=== PATIENT | male | born 1990 | race Caucasian/White ===

== ENCOUNTER 2017-06-07 12:10 | Emergency (ER) | payer MEDICAID, SELFPAY ==
[2017-06-07 12:39] VITALS: BP 156/75; PULSE 82; RESP 20; TEMP 37.2; O2SAT 100; BMI 26.6
[2017-06-07 12:53] LABS: UTC Influenza A Antigen Negative (Negative); UTC Influenza B Antigen Negative (Negative)
[2017-06-07 12:54] LABS: UTC Strep Screen (Rapid) Negative (Negative)
--- NOTE | 2017-06-07 13:27 | HMH.EDUTC ---
[facility] [place] Disposition Clinical Impression: Viral upper respiratory illness Disposition: Home, Self-Care Condition on Discharge: Good Instructions: DI for Viral Upper Respiratory Infection -- Adult Additional Instructions: * No sign of bacterial infection. Likely viral. Virus can take 7-14 days to run their course. Could be the flu with a false negative test as we discussed so treat yourself as far as exposure and follow up as if that is the case. * Monitor Temp. Tylenol every 4 hours as needed no more then 5 times a day or 4000mg in 24 hours and/or ibuprofen every 6 hours as needed no more then 3200mg in 24 hours (as long as your primary care doctor has told you that it is ok to take both) for fever/aches/pain. ER if fever no less than 101 despite tylenol and ibuprofen * Encourage fluids, water, gatorade, powerade, pedialyte if infant/toddler/child * warm salt water gargles * warm fluids * sore throat lozenges * sleep elevated * humidifier/vaporizer * * Your throat swab was sent for culture. Those results are typically sent to your primary care. Be sure to follow up in 2-3 days if no improvement so they can review those results and treat if necessary. If you don't have primary care, I recommend you get one but in the mean time, you will have to return to a walk in clinic. Referrals: Carola Lujan MD [Primary Care Provider] - (IMMEDIATELY for new or worsening symptoms OR no noticeable improvement over the next 48-72 hours. 911 for difficulty breathing or swallowing.) Forms: Work/School Release Time of Disposition: 13:41 Medical Decision Making Vital Signs: 06/07/17 12:39 Temperature 98.9 F Temperature Source Temporal Artery Scan Pulse Rate [Brachial] 82 Respiratory Rate 20 Blood Pressure [Right Arm] 156/75 Blood Pressure Mean [Right Arm] 102 Blood Pressure Source [Right Arm] Automatic Cuff Blood Pressure Position [Right Arm] Sitting 02 Sat by Pulse Oximetry 100 Oxygen Delivery Method Room Air - Lab Data Lab results reviewed: Yes: I reviewed the patient's lab results. Lab Results 06/07/17 12:39: Influenza Type A Ag Negative, Influenza Type B Ag Negative, Strep Scn Rapid Clinic Negative Orders (Tests/Meds): ORDERS Category Date Time Status Strep Screen Confirmation Stat Micro 06/07/17 12:39 Received - Keith Inquiry Pt receiving controlled substance: No [facility] [place] HPI - General Stated complaint: sore throat,cough,fever Time Seen by Provider: 06/07/17 13:27 Mode of Arrival: Ambulatory Source of Information: Patient Limitations: No Limitations Description of Symptoms (Recalled from Triage Doc. by RN): SORE THROAT, COUGH AND FEVER SINCE LAST NIGHT HEENT Symptoms (Recalled from RN notes): Yes Resp Symptoms (Recalled from RN notes): Yes Skin Symptoms (Recalled from RN notes): No MS Symptoms (Recalled from RN notes): No Functional Status (Recalled from RN notes): NA - History of Present Illness Provider Complaint: c/o sore throat, cough, fever. Started w/ cough 2-3 days ago. Fever he thinks of 102 last night. No known sick contacts. Took nyquil initially 2-3 days ago but hasn't taken or tried anything since including tylenol or motrin. Wants to rule out flu and strep. - Related Data Home Medications Medication Instructions Recorded Confirmed No Known Home Medications [No 06/07/17 06/07/17 Known Home Medications] Allergies Allergy/AdvReac Type Severity Reaction Status Date / Time No Known Allergies Allergy Verified 06/07/17 12:44 - Worker's Comp Is this a Worker's Comp case?: No [facility] History I have reviewed the patient's past medical history: Yes (drug abuse) Other Surgeries: Yes: Other (hernia) - *Social History Smoking Status: Current every day smoker Tobacco Type: cigarettes Alcohol Intake: never - Psychiatric History Expresses thoughts of harming self/others: None Suicide Plan Description: No Plan ROS Obtained: Yes Systems reviewed as appropriate & no
--- NOTE | 2017-06-07 13:34 | ED_ITS ---
[facility] [place] Disposition Clinical Impression: Viral upper respiratory illness Disposition: Home, Self-Care Condition on Discharge: Good Instructions: DI for Viral Upper Respiratory Infection -- Adult Additional Instructions: * No sign of bacterial infection. Likely viral. Virus can take 7-14 days to run their course. Could be the flu with a false negative test as we discussed so treat yourself as far as exposure and follow up as if that is the case. * Monitor Temp. Tylenol every 4 hours as needed no more then 5 times a day or 4000mg in 24 hours and/or ibuprofen every 6 hours as needed no more then 3200mg in 24 hours (as long as your primary care doctor has told you that it is ok to take both) for fever/aches/pain. ER if fever no less than 101 despite tylenol and ibuprofen * Encourage fluids, water, gatorade, powerade, pedialyte if infant/toddler/ child * warm salt water gargles * warm fluids * sore throat lozenges * sleep elevated * humidifier/vaporizer * * Your throat swab was sent for culture. Those results are typically sent to your primary care. Be sure to follow up in 2-3 days if no improvement so they can review those results and treat if necessary. If you don't have primary care , I recommend you get one but in the mean time, you will have to return to a walk in clinic. Referrals: Carola Lujan MD [Primary Care Provider] - (IMMEDIATELY for new or worsening symptoms OR no noticeable improvement over the next 48-72 hours. 911 for difficulty breathing or swallowing.) Forms: Work/School Release Time of Disposition: 13:41 Medical Decision Making Vital Signs: 06/07/17 12:39 Temperature 98.9 F Temperature Source Temporal Artery Scan Pulse Rate [Brachial] 82 Respiratory Rate 20 Blood Pressure [Right Arm] 156/75 Blood Pressure Mean [Right Arm] 102 Blood Pressure Source [Right Arm] Automatic Cuff Blood Pressure Position [Right Arm] Sitting 02 Sat by Pulse Oximetry 100 Oxygen Delivery Method Room Air - Lab Data Lab results reviewed: Yes: I reviewed the patient's lab results. Lab Results 06/07/17 12:39: Influenza Type A Ag Negative, Influenza Type B Ag Negative, Strep Scn Rapid Clinic Negative Orders (Tests/Meds): ORDERS Category Date Time Status Strep Screen Confirmation Stat Micro 06/07/17 12:39 Received - Keith Inquiry Pt receiving controlled substance: No [facility] [place] HPI - General Stated complaint: sore throat,cough,fever Time Seen by Provider: 06/07/17 13:27 Mode of Arrival: Ambulatory Source of Information: Patient Limitations: No Limitations Description of Symptoms (Recalled from Triage Doc. by RN): SORE THROAT, COUGH AND FEVER SINCE LAST NIGHT HEENT Symptoms (Recalled from RN notes): Yes Resp Symptoms (Recalled from RN notes): Yes Skin Symptoms (Recalled from RN notes): No MS Symptoms (Recalled from RN notes): No Functional Status (Recalled from RN notes): NA - History of Present Illness Provider Complaint: c/o sore throat, cough, fever. Started w/ cough 2-3 days ago. Fever he thinks of 102 last night. No known sick contacts. Took nyquil initially 2-3 days ago but hasn't taken or tried anything since including tylenol or motrin. Wants to rule out flu and strep. - Related Data Home Medications Medication Instructions Recorded Confirmed No Known Home Medications [No 06/07/17 06/07/17 Known Home Medications] Darryn
== END 2017-06-07 13:43 | disposition home or self-care (01) ==
PROVIDERS: Emergency Provider Nurse Practitioner Family; Family Provider Emergency Medicine; PCP Family Medicine
DX: J06.9 Acute upper respiratory infection, unspecified (principal); F17.210 Nicotine dependence, cigarettes, uncomplicated
CPT/HCPCS: 87804; 87880; 99202

== ENCOUNTER 2024-07-19 09:59 | Emergency (ER) | payer MEDICAID, SELFPAY ==
[2024-07-19 10:24] VITALS: BP 118/68; PULSE 101; RESP 16; TEMP 36.9; O2SAT 100; BMI 21.6
--- NOTE | 2024-07-19 10:44 | XR_ITS ---
FINAL REPORT CLINICAL HISTORY: L hip pain FINDINGS: LEFT HIP 2 views of the left hip are obtained. There is no acute fracture or dislocation. Visualized joint spaces are normally aligned. There is no acute soft tissue abnormality. IMPRESSION: No acute bony abnormality. Reviewed, Interpreted and Dictated by Carola Patel MD Transcribed by Amanda Paredes Authenticated and [facility]
--- NOTE | 2024-07-19 10:58 | CT_ITS ---
FINAL REPORT TECHNIQUE: Axial imaging of the pelvis was obtained without contrast.This study was performed with techniques to keep radiation doses as low as reasonably achievable, (ALARA). Individualized dose reduction technique using automated exposure control or adjustment of mA and/or kV according to the patient's size were employed. CLINICAL HISTORY: severe L SI, Hip Pain FINDINGS: There is no acute fracture or dislocation. Femoral heads are located bilaterally. There is cortical indistinctness with widening of the left SI joint consistent with unilateral sacroiliitis. Right SI joint is unremarkable. No fluid collection is identified. IMPRESSION: Left sided sacroiliitis, likely active. No fracture identified. Reviewed, Interpreted and Dictated by Carola Patel MD Transcribed by Amanda Paredes Authenticated and [facility]
--- NOTE | 2024-07-19 10:58 | CT_ITS ---
FINAL REPORT TECHNIQUE: Axial imaging of the lumbar spine was obtained without contrast. Reformatted images were also obtained and reviewed.This study was performed with techniques to keep radiation doses as low as reasonably achievable, (ALARA). Individualized dose reduction techniques using automated exposure control or adjustment of mA and/or kV according to the patient's size were employed. CLINICAL HISTORY: severe L SI pain FINDINGS: There is no acute fracture or subluxation. The vertebra are normal height. There is no malalignment. Facets are properly aligned. Prevertebral soft tissues unremarkable. IMPRESSION: No acute bony abnormality. Reviewed, Interpreted and Dictated by Carola Patel MD Transcribed by Amanda Paredes Authenticated and [facility]
--- NOTE | 2024-07-19 11:05 | HMH.EDGENADL ---
Discharge Plan Disposition Patient Disposition: Home, Self-Care Prescriptions Prescriptions: New sulfamethoxazole-trimethoprim [Bactrim DS] 800-160 mg tablet 1 tab PO BID 10 Days Qty: 20 0RF No Action buprenorphine-naloxone [Suboxone] 8-2 mg film 10 mg SUBLINGUAL Q24H Referrals Follow up/Referrals: Provider,Referral, [Primary Care Provider] - See instructions Activity Restrictions/Add. Instructions Additional Instructions/Restrictions: As discussed today with your history of IV drug use and inflammation of your left sacroiliac joint it is infection until proven otherwise. It may be that it is not infection however it is very important that we rule this out. I encourage you to stay, get further imaging and be transferred to another hospital for which you do not want to do today. If you want return to the emergency department anytime to continue your evaluation you are welcome to. I am sending home with some antibiotics although they are not as good as IV antibiotics are certainly better than nothing at all. Please take them as prescribed and follow-up with your family doctor or the ER or any healthcare facility that has a spine surgeon evaluation as soon as possible. Clinical Impressions Clinical Impression: Sacroiliitis Print Language Print Language: Albanian Discharge ED Provider: Juan Mcfarland General Adult HPI General Chief complaint: PAIN Stated complaint: Left hip pain/trouble walking Time Seen by Provider: 07/19/24 10:26 Mode of Arrival: Wheelchair Source of Information: Patient Description of Symptoms (Recalled from ER Triage Doc. by RN): pt c/o L hip pain that has been ongoing x1mo. pt denies any injury. pt states his pain is 10/10, sharp, and constant. pt states the pain radiates to his LL back and L buttock. History of Present Illness HPI narrative: Patient is a 34-year-old male past medical history of previous IV drug use last used 2 weeks ago who presents emergency department for evaluation of left hip pain. History is obtained by patient at bedside. No trauma. He has previously had left-sided pain that wraps around his butt into his hip before however this was many years ago. He is now on Suboxone and does not currently inject although he had injected up to 2 weeks ago.. No midline pain reported. No saddle anesthesia. Patient is able to bear weight with difficulty given severity of pain. No other acute complaints at this time. Please note that above description of symptoms, in this electronic medical record under categorization of recalled from ER triage doctor by RN are reflective of an initial nursing assessment, however, is not reflective of my full history and physical exam that was personally taken and clarified. Consequentially, this preceding description of symptoms, which may include the patient's categorized chief complaint in the EMR, do not reflect my personal clinical impression, and the ultimate description of history of present illness and patient stated complaints should be deferred to this section of the note. Unless stated otherwise or congruent with this section of the note, additional signs, symptoms, or incongruence should be interpreted as inaccurate with my clinical impression. Related Data Home Medications ?Medication ?Instructions ?Recorded ?Confirmed buprenorphine 8 mg-naloxone 2 mg 10 mg sublingual Q24H 07/07/17 07/19/24 sublingual film (Suboxone) Previous Rx's ?Medication ?Instructions ?Recorded sulfamethoxazole 800 1 tab PO BID 10 days #20 tabs 07/19/24 mg-trimethoprim 160 mg tablet (Bactrim DS) Allergies Allergy/AdvReac Type Severity Reaction Status Date / Time No Known Allergies Allergy Verified 07/19/24 10:29 [facility] Disclaimer: The information contained in this section may have been updated after the patient was seen, as this information can be updated by other users. Social History Smoking Status: Current every day smoker tobacco type: cigarettes alcohol intake: never current occupational status: other Travel in the last 8 weeks: None Other Medical History Have you received the Flu Vaccine for this season: No ROS Obtained: Yes Systems reviewed as appropriate & no additional complaints except as documented Physical Exam General General appearance: alert and in no apparent distress Head Head exam: atraumatic and normocephalic Eye Eye exam: Present PERRL and EOMI ENT ENT exam: Present mucous membranes moist Neck Neck exam: Present normal inspection Chest Chest inspection: Present normal inspection and symmetric chest wall rise Respiratory Respiratory exam: Present normal lung sounds bilaterally; Absent respiratory distress Cardiovascular Cardiovascular exam: Present regular rate and normal rhythm Abdominal Exam Abdominal exam: Present soft; Absent tenderness Extremities Exam Extremities exam: Present normal inspection Back Exam Back exam: Present other (Tenderness over the left SI joint without warmth or erythema. 5 out of 5 strength at the hip. Difficulty rising from seated position due to pain however is able to fully bear weight. Palpable dorsal pedal pulse on the left. No skin changes.); Absent tenderness Neurological Exam Neurological exam: Present alert Psychiatric Psychiatric exam: Present normal affect Skin Skin exam: Present warm and dry Medical Decision Making Medical Records Screening: Per USPSTF and CDC recommendations, given the prevalence of disease in our region, it is our hospital?s policy to screen for HIV and viral Hepatitis for all patients aged 18 and over and those with ongoing risk factors. Keith Inquiry Pt receiving controlled substance: No Vital Signs: 07/19/24 10:24 Temperature 98.4 F Temperature Source Oral Pulse Rate [Left] 101 H Respiratory Rate 16 Blood Pressure [Right Arm] 118/68 Blood Pressure Mean [Right Arm] 84 Blood Pressure Source [Right Arm] Automatic Cuff Blood Pressure Position [Right Arm] Sitting 02 Sat by Pulse Oximetry 100 Oxygen Delivery Method Room Air Lab Data Lab Results 07/19/24 11:26: WBC 12.7 H, RBC 4.70, Hgb 12.9 L, Hct 39.7 L, MCV 84.5, MCH 27.4, MCHC 32.5, RDW 13.0, Plt Count 369, MPV 10.7 H, Neut % (Auto) 69.5, Lymph % (Auto) 23.7, Hamblen % (Auto) 4.6, Eos % (Auto) 1.5, Baso % (Auto) 0.3, Neut # (Auto) 8.8 H, Lymph # (Auto) 3.0, Hamblen # (Auto) 0.6, Eos # (Auto) 0.2, Baso # (Auto) 0.0, ESR 40 H, Sodium 138, Potassium 4.4, Chloride 101, Carbon Dioxide 29, Anion Gap 12.4, BUN 11, Creatinine 0.70, Estimated Creat Clear 149, Estimated GFR 130, Est GFR ( Amer) 157, Glucose 93, Calcium 9.8, Total Bilirubin 0.4, AST 26, ALT 37, Alkaline Phosphatase 72, Total Protein 8.0, Albumin 4.5, Globulin 3.5 H, Albumin/Globulin Ratio 1.3 07/19/24 11:26 07/19/24 11:26 Orders (Tests/Meds): ED MEDICATIONS Discontinued Medications Generic Name Dose Route Start Last Admin Trade Name Freq PRN Reason Stop Dose Admin Acetaminophen 1,000 mg 07/19/24 11:00 07/19/24 11:37 Acetaminophen 500mg Tab PO 07/19/24 11:01 1,000 mg ONCE ONE Administration Ketorolac Tromethamine 30 mg 07/19/24 10:58 07/19/24 11:38 Ketorolac 30mg/Ml Vial IV 07/19/24 10:59 30 mg ONCE ONE Administration Lidocaine 1 each 07/19/24 11:08 07/19/24 11:37 Lidocaine 5% Transdermal Patch TP 07/19/24 11:09 1 each ONCE ONE Administration Methocarbamol 1,000 mg 07/19/24 11:08 07/19/24 11:37 Methocarbamol 500mg Tablet PO 07/19/24 11:09 1,000 mg ONCE ONE Administration ORDERS Category Date Time Status CT bony pelvis Stat Cat Scan 07/19/24 10:[address] lumbar spine wo con Stat Cat Scan 07/19/24 10:58 Completed Consult Neuropathologist [CONS] Routine Cons 07/19/24 12:52 Active Hip XR left minimum 2 views [XR hip LT 2-3V w/pelvis] Exams 07/19/24 10:44 Completed Stat CBC w/Auto Diff [Complete Blood Count Auto Diff] Stat Lab 07/19/24 11:26 Completed CMP [Comprehensive Metabolic Panel] Stat Lab 07/19/24 11:26 Completed ESR [Erythrocyte Sedimentation Rate] Stat Lab 07/19/24 11:26 Completed HIV Combo Stat Lab 07/19/24 11:26 Received Hepatitis C Ab Qual. W/ RFX Stat Lab 07/19/24 11:26 Received Blood Culture Stat Micro 07/19/24 11:28 Received Medical Decision Narrative: In summary patient is a 34-year-old male past medical history described above presents emergency department for evaluation of left separable iliac and left lumbar paraspinal pain wrapping around his buttocks in the setting of IV drug use. Patient is hemodynamically stable nontoxic-appearing upon arrival, afebrile, slight tachycardia. Differential includes sciatica, deep space infection, among others. Patient does have red flag symptom of IV drug use however does not have midline tenderness, he does have severe pain in his left SI joint. Given this workup we will initiated with hematologic labs, CT lumbar spine, CT bony pelvis. Initial inventions include multimodal pain control. Initial workup reviewed by me, white count of 12.7, no IRENE or critical electrolyte abnormality, mildly elevated ESR at 40. Pelvis CT has left-sided sacroiliitis with cortical indistinctness and widening of the left SI joint. Lumbar spine no acute bony abnormality. With his history of IV drug use this is infectious sacroiliitis until proven otherwise. I had extensive multiple discussions with patient at bedside over his need for transfer for high-level care for further diagnostics, IV antibiotics and possible intervention. He has capacity and is not interested in pursuing this at this time. Given this I will at least prescribe him a course of MRSA coverage antibiotics although they will not be near as useful as IV antibiotics and further evaluation are better than nothing. He was encouraged to return to the emergency department at any time and signed out AGAINST MEDICAL ADVICE Critical Care Critical Care Time Critical Care Time: No
[2024-07-19 11:36] LABS: Basophils % 0.3 % (0.1-2.0); Eosinophils # 0.2 K/mm3 (0.0-0.4); Eosinophils % 1.5 % (0.1-12.0); Hematocrit 39.7 % (42.0-52.0); Hemoglobin 12.9 g/dL (14.1-18.0); Lymphocytes % 23.7 % (10-50); Mean Corpuscular HGB Conc 32.5 g/dL (31.8-35.4); Mean Corpuscular Hemoglobin 27.4 pg (27.0-31.2); Mean Corpuscular Volume 84.5 fl (80-94); Mean Platelet Volume 10.7 fl (7.4-10.4); Monocytes # 0.6 K/mm3 (0.1-1.0); Monocytes % 4.6 % (1.7-9.3); Neutrophils # 8.8 K/mm3 (1.8-7.8); Neutrophils % 69.5 % (37.0-80.0); Platelet Count 369 K/mm3 (142-424); White Blood Count 12.7 K/mm3 (4.8-10.8)
[2024-07-19] MEDS: ACETAMINOPHEN 500MG TAB 1000 MG PO (11:37)
[2024-07-19] MEDS: METHOCARBAMOL 500MG TABLET 1000 MG PO (11:37)
[2024-07-19] MEDS: LIDOCAINE 5% TRANSDERMAL PATCH 1 EACH TP (11:37)
[2024-07-19] MEDS: KETOROLAC 30MG/ML VIAL 30 MG IV (11:38)
[2024-07-19 12:09] LABS: Alanine Aminotransferase 37 U/L (12-78); Albumin Level 4.5 g/dl (3.5-5.0); Albumin/Globulin Ratio 1.3 (1.1-1.8); Alkaline Phosphatase 72 U/L (38-126); Anion Gap 12.4 mEq/L (5-15); Aspartate Amino Transferase 26 U/L (17-59); Bilirubin,Total 0.4 mg/dl (0.2-1.3); Blood Urea Nitrogen 11 mg/dl (9-20); Calcium 9.8 mg/dl (8.4-10.2); Carbon Dioxide 29 mmol/L (22.0-30.0); Chloride 101 mmol/L (98-107); Creatinine Clearance Estimated 149 mL/min (50-200); Estimated Glomerular Filt Rate 130 ml/min (>60); GFR (African American) 157 ML/MIN (>60); Globulin 3.5 g/dL (1.3-3.2); Glucose 93 mg/dl (74-100); Potassium 4.4 mmoL/L (3.5-5.1); Sodium 138 mmol/L (136-145)
[2024-07-19 12:17] LABS: Erythrocyte Sedimentation Rate 40 mm/hr (0-15)
[2024-07-19 13:17] VITALS: BP 118/66; PULSE 101; RESP 19; TEMP 36.6
[2024-07-19 14:27] LABS: Hepatitis C Ab Qual. W/ RFX REACTIVE (Negative)
[2024-07-19 18:03] LABS: HIV Combo NEGATIVE (Negative)
--- NOTE | 2024-07-20 21:03 | EXP.EVENT.NO ---
I attempted to call patient at first listed phone number, this was either a fake phone number or disconnected. I reached out to next of kin, Ms. Rodriguez. She was with patient and stated that she was able to put him on the telephone. I spoke to Mr. Gray and after introducing myself, patient started swearing and told me he was going to hang the fuck up. He hung up. Will attempt later
--- NOTE | 2024-07-22 11:53 | PC.NURSE ---
ATTEMPTED TO REACH PT AT THIS TIME. PT'S NUMBER DOES NOT RING AND CANNOT LEAVE MESSAGE. CALLED PT'S MOTHER SAMEER GRAJEDA, PERSON TO CONTACT. SPOKE WITH MOTHER AND SHE STATES THEY ARE GOING TO TAKE PT TO [facility] THIS AFTERNOON. REINFORCED THE IMPORTANCE THAT PT BE TREATED, MOTHER V/U AND REPEATS SHE WILL MAKE THE PT GO TO THIS AFTERNOON
== END 2024-07-19 13:21 | disposition home or self-care (01) ==
PROVIDERS: Emergency Provider Emergency Medicine
DX: M46.1 Sacroiliitis, not elsewhere classified (principal); M25.552 Pain in left hip; M54.50 Low back pain, unspecified; R26.81 Unsteadiness on feet; F17.210 Nicotine dependence, cigarettes, uncomplicated
CPT/HCPCS: 72131; 72192; 73502; 80053; 85025; 85651; 86803; 87040; 87077; 87186; 87389; 87522; 96374; 99284; J1885

== ENCOUNTER 2024-10-08 13:38 | Emergency (ER) | payer MEDICAID, SELFPAY ==
[2024-10-08 13:41] VITALS: BP 134/93; PULSE 86; RESP 18; TEMP 36.7; O2SAT 100; BMI 27.0
--- NOTE | 2024-10-08 13:49 | ED_ITS ---
<Statement entered by Telma Gill DO - 10/09/24 15:55> I was consulted by the MARC, and we discussed the complexity of the problems being addressed. I approved the treatment and management plan for this patient's care in the emergency department, thus performing a substantive portion of the medical decision making. Telma Gill DO Discharge Plan Disposition Patient Disposition: Home, Self-Care Condition: Good Prescriptions Prescriptions: No Action buprenorphine-naloxone [Suboxone] 8-2 mg film 10 mg SUBLINGUAL Q24H sulfamethoxazole-trimethoprim [Bactrim DS] 800-160 mg tablet 1 tab PO BID 10 Days Qty: 20 0RF Referrals Follow up/Referrals: Provider,Referral, MD [Primary Care Provider] - See instructions Activity Restrictions/Add. Instructions Additional Instructions/Restrictions: Recommend ice Tylenol ibuprofen to help control your pain and symptoms. If you have new persistent or worsening signs or symptoms follow-up with your PCP return to the ER as needed. Clinical Impressions Clinical Impression: Fracture of costal cartilage Instructions Patient Instructions: DI for Acute Abdominal Pain Print Language Print Language: Citizen Of [place] Discharge ED Provider: Telma Gill General Adult HPI General Chief complaint: Abdominal Pain Stated complaint: R Side Pain-Bulging out. Sepsis last month Time Seen by Provider: 10/08/24 13:49 Mode of Arrival: Ambulatory Source of Information: Patient Description of Symptoms (Recalled from ER Triage Doc. by RN): Pt presents with c/o RUQ abdominal pain x 1 week. Pt states his pain is a 6/10, and feels swollen. Denies n/v/d/constipation History of Present Illness HPI narrative: Patient presents for evaluation of chest wall pain. Patient states that he has had increasing anterior chest wall pain on the right side. He denies any known injury. He denies any shortness of breath cardiac type chest pain fever chills mopped assist hematochezia melena nausea vomit diarrhea. Related Data Home Medications ?Medication ?Instructions ?Recorded ?Confirmed buprenorphine 8 mg-naloxone 2 mg 10 mg sublingual Q24H 07/07/17 07/19/24 sublingual film (Suboxone) Previous Rx's ?Medication ?Instructions ?Recorded sulfamethoxazole 800 1 tab PO BID 10 days #20 tabs 07/19/24 mg-trimethoprim 160 mg tablet (Bactrim DS) Allergies Allergy/AdvReac Type Severity Reaction Status Date / Time No Known Allergies Allergy Verified 07/19/24 10:29 [facility] Disclaimer: The information contained in this section may have been updated after the patient was seen, as this information can be updated by other users. Social History (Updated 07/19/24 @ 13:11 by Juan Mcfarland MD) Smoking Status: Current every day smoker tobacco type: cigarettes alcohol intake: never current occupational status: other Travel in the last 8 weeks?: None Have you lived/traveled outside [place] in past 30 days?: No Contact w/someone who lives/traveled outside US past 30 days?: No Exposure to someone with infectious disease in past 14 days?: No Do you have a fever (greater than 100.4 F or 38 C)?: No Have you tested positive for COVID-19?: No Exposed to someone with COVID-19 in past 14 days?: No Do you have a sore throat?: No Do you have a cough?: No Do you have any weakness?: No Do you have any diarrhea?: No Are you experiencing any unusual bleeding?: No Do you have any muscle aches/pain?: Yes Do you have any abdominal pain?: No Are you experiencing loss of taste or smell?: No Other Medical History Have you received the Flu Vaccine for this season: No ROS Obtained: Yes Systems reviewed as appropriate & no additional complaints except as documented Physical Exam General General appearance: alert Respiratory Respiratory exam: Present normal lung sounds bilaterally Cardiovascular Cardiovascular exam: Present regular rate Neurological Exam Neurological exam: Present alert and oriented X3 Medical Decision Making Medical Records Medical records reviewed: Yes I reviewed the patient's medical records. Screening: Per USPSTF and CDC recommendations, given the prevalence of disease in our region, it is our hospital?s policy to screen for HIV and viral Hepatitis for all patients aged 18 and over and those with ongoing risk factors. Keith Inquiry Pt receiving controlled substance: No Vital Signs: 10/08/24 13:41 10/08/24 14:02 10/08/24 14:30 Temperature 98.0 F Temperature Source Oral Pulse Rate 87 86 Pulse Rate [Right] 86 Respiratory Rate 18 Blood Pressure 154/89 H 131/85 Blood Pressure [Right Arm] 134/93 H Blood Pressure Mean [Right Arm] 106 Blood Pressure Source [Right Arm] Automatic Cuff Blood Pressure Position [Right Arm] Sitting 02 Sat by Pulse Oximetry 100 98 97 Oxygen Delivery Method Room Air 05/25/25 15:30 Temperature 98.6 F Temperature Source Pulse Rate 75 Pulse Rate [Right] Respiratory Rate 18 Blood Pressure 131/85 Blood Pressure [Right Arm] Blood Pressure Mean [Right Arm] Blood Pressure Source [Right Arm] Blood Pressure Position [Right Arm] 02 Sat by Pulse Oximetry Oxygen Delivery Method Lab Data Lab results reviewed: Yes I reviewed the patient's lab results. Lab Results 10/08/24 14:00: WBC 7.7, RBC 5.18, Hgb 14.0 L, Hct 42.9, MCV 82.8, MCH 27.0, MCHC 32.6, RDW 12.6, Plt Count 263, MPV 10.7 H, Neut % (Auto) 49.7, Lymph % (Auto) 39.1, [place] % (Auto) 6.0, Eos % (Auto) 4.4, Baso % (Auto) 0.5, Neut # (Auto) 3.8, Lymph # (Auto) 3.0, [place] # (Auto) 0.5, Eos # (Auto) 0.3, Baso # (Auto) 0.0, ESR Cancelled, Sodium 139, Potassium 4.4, Chloride 101, Carbon Dioxide 34 H, Anion Gap 8.4, BUN 11, Creatinine 0.70, Estimated Creat Clear 187, Estimated GFR 130, Est GFR ( Amer) 157, Glucose 111 H, Calcium 9.8, Total Bilirubin 0.3, AST 95 H, ALT 133 H, Alkaline Phosphatase 89, C-Reactive Protein 29.0 H, Total Protein 8.0, Albumin 4.6, Globulin 3.4 H, Albumin/Globulin Ratio 1.4, Procalcitonin 0.054 10/08/24 14:20: Urine Color Yellow, Urine Appearance Clear, Urine pH 6.5, Ur Specific [place] 1.015, Urine Protein Negative, Urine Glucose (UA) Negative, Urine Ketones Negative, Urine Blood Negative, Urine Nitrate Negative, Urine Bilirubin Negative, Urine Urobilinogen 1.0, Ur Leukocyte Esterase Negative, Urine RBC None, Urine WBC Occasional, Ur Squamous Epith Cells Occasional, Urine Bacteria Trace 10/08/24 14:00 10/08/24 14:00 Orders (Tests/Meds): ED MEDICATIONS Discontinued Medications Generic Name Dose Route Start Last Admin Trade Name Freq PRN Reason Stop Dose Admin Acetaminophen 1,000 mg 10/08/24 13:51 10/08/24 14:13 Acetaminophen 500mg Tab PO 10/08/24 13:52 1,000 mg ONCE ONE Administration Ibuprofen 800 mg 10/08/24 13:51 10/08/24 14:14 Ibuprofen 400 Mg Tablet PO 10/08/24 13:52 800 mg ONCE ONE Administration Lidocaine 1 each 10/08/24 13:51 10/08/24 14:14 Lidocaine 5% Transdermal Patch TD 10/08/24 13:52 1 each ONCE ONE Administration ORDERS Category Date Time Status CT chest wo con Stat Cat Scan 10/08/24 13:54 Completed CBC w/Auto Diff [Complete Blood Count Auto Diff] Stat Lab 10/08/24 14:00 Completed CMP [Comprehensive Metabolic Panel] Stat Lab 10/08/24 14:00 Completed CRP [C-Reactive Protein] Stat Lab 10/08/24 14:00 Completed Procalcitonin Stat Lab 10/08/24 14:00 Completed Urinalysis and Microscopic Stat Lab 10/08/24 14:20 Completed Medical Decision Narrative: In summary patient is a 34-year-old male who presents to the emergency department for evaluation of right anterior chest wall pain. Patient is hemodynamically stable upon arrival, afebrile. Zickel exam is remarkable for visible swelling in the nipple line inferior to the mamillary fold on the right chest. Palpation reveals tenderness and firmness but no obvious bony deformity on palpation. Breath sounds clear in the bilateral to the base with adventitious sounds cardiovascular's S1-S2 regular rate and rhythm without murmurs gallops rubs or thrills. Abdomen soft nontender rebound or guarding with no rigidity.. Differential diagnosis includes hematoma versus rib fracture versus costochondral separation versus costal fracture etc. Initial workup will be conducted with hematologic labs CT scan of the chest without contrast. Initial interventions include Toradol Tylenol and Lidoderm patch. Initial workup reviewed by me shows his hematologic labs are nonactionable, white count no neutrophilic shift however his inflammatory markers are elevated with a CRP of 29 procalcitonin 0.044 urinalysis is bland and my informal interpretation of his CT scan shows a costal fracture around the eighth costal cartilage with associated soft tissue swelling but no fluid collection consistent with a hematoma. Please see radiology read for final interpretation. Upon repeat evaluation reported improvement after Lidoderm patch and Toradol Tylenol. Given this patient is appropriate for discharge with follow-up PCP recommendations for ice and continue Tylenol alternating with ibuprofen for symptomatic pain and swelling. Patient verbalized understanding and agreement Critical Care Critical Care Time Critical Care Time: No
--- NOTE | 2024-10-08 13:54 | CT_ITS ---
PROCEDURE INFORMATION: Exam: CT Chest Without Contrast; Diagnostic Exam date and time: 10/08/2024 2:13 PM Age: 34 years old Clinical indication: Chest wall pain; Additional info: Right anterior chest wall pain/knot below the right nipple x few weeks, smoker TECHNIQUE: Imaging protocol: Diagnostic computed tomography of the chest without contrast. Radiation optimization: All CT scans at this facility use at least one of these dose optimization techniques: automated exposure control; mA and/or kV adjustment per patient size (includes targeted exams where dose is matched to clinical indication); or iterative reconstruction. COMPARISON: No relevant prior studies available. FINDINGS: Limitations: The absence of intravenous contrast limits the assessment of vascular structures, lesions and lymphadenopathy. Trachea: Main airways are patent. Lungs: No evidence of consolidation or interlobular septal thickening. There is a 4 mm right lower lobe nodule for which follow-up is not indicated. There is a left lower lobe pulmonary granuloma. Pleural spaces: No pneumothorax. No pleural effusion. Heart: Unremarkable. No cardiomegaly. No pericardial effusion. Coronary arteries: There is mild atherosclerotic calcification of the coronary arteries. Lymph nodes: No evidence of hilar or mediastinal lymphadenopathy within the limits of noncontrast exam. Vasculature: Unremarkable. No aortic aneurysm. Bones/joints: No acute osseous abnormality. Soft tissues: Chest wall is unremarkable. No ostia. IMPRESSION: 1. There is mild atherosclerotic calcification of the coronary arteries. 2. No chest wall abnormality.
[2024-10-08 14:02] VITALS: BP 154/89; PULSE 87; O2SAT 98
[2024-10-08 14:11] LABS: Basophils % 0.5 % (0.1-2.0); Eosinophils # 0.3 Kmm3 (0.0-0.4); Eosinophils % 4.4 % (0.1-12.0); Hematocrit 42.9 % (42.0-52.0); Immature Granulocytes # 0.02 10^3uL; Immature Granulocytes % 0.3 %; Lymphocytes % 39.1 % (10-50); Mean Corpuscular HGB Conc 32.6 g/dL (31.8-35.4); Mean Corpuscular Volume 82.8 fl (80-94); Mean Platelet Volume 10.7 fl (7.4-10.4); Monocytes # 0.5 K/mm3 (0.1-1.0); Neutrophils # 3.8 K/mm3 (1.8-7.8); Neutrophils % 49.7 % (37.0-80.0); Nucleated Red Blood Cells # 0 10^3/uL; Nucleated Red Blood Cells % 0 %; Platelet Count 263 K/mm3 (142-424); Red Blood Count 5.18 M/mm3 (4.60-6.20); Red Cell Distribution Width 12.6 % (11.5-17.5); White Blood Count 7.7 K/mm3 (4.8-10.8)
[2024-10-08] MEDS: ACETAMINOPHEN 500MG TAB 1000 MG PO (14:13)
[2024-10-08] MEDS: LIDOCAINE 5% TRANSDERMAL PATCH 1 EACH TD (14:14)
[2024-10-08] MEDS: IBUPROFEN 400 MG TABLET 800 MG PO (14:14)
[2024-10-08 14:19] LABS: Albumin Level 4.6 g/dl (3.5-5.0); Chloride 101 mmol/L (98-107); Potassium 4.4 mmoL/L (3.5-5.1); Sodium 139 mmol/L (136-145)
[2024-10-08 14:21] LABS: Blood Urea Nitrogen 11 mg/dl (9-20); Creatinine Clearance Estimated 187 mL/min (50-200); Estimated Glomerular Filt Rate 130 ml/min (>60); GFR (African American) 157 ML/MIN (>60)
[2024-10-08 14:22] LABS: Alanine Aminotransferase 133 U/L (12-78); Albumin/Globulin Ratio 1.4 (1.1-1.8); Alkaline Phosphatase 89 U/L (38-126); Anion Gap 8.4 mEq/L (5-15); Aspartate Amino Transferase 95 U/L (17-59); Bilirubin,Total 0.3 mg/dl (0.2-1.3); Calcium 9.8 mg/dl (8.4-10.2); Carbon Dioxide 34 mmol/L (22.0-30.0); Globulin 3.4 g/dL (1.3-3.2); Glucose 111 mg/dl (74-100)
[2024-10-08 14:30] VITALS: BP 131/85; PULSE 86; O2SAT 97
[2024-10-08 14:46] LABS: Microscopic, Urine URINE MICROSCOPIC (MICROSCOPIC)
--- NOTE | 2024-10-08 15:15 | PC.NURSE ---
pt gone to scans
[2024-10-08 15:16] LABS: Appearance,Urine CLEAR (Clear); Bilirubin,Urine Negative (Negative); Blood, Urine Negative (Negative); Color,Urine YELLOW (Yellow); Glucose,Urine (UA) Negative (Negative); Ketones,Urine Negative (Negative); Leukocyte Esterase,Urine Negative (Negative); Nitrate,Urine Negative (Negative); PH,Urine 6.5 (5.0-8.5); Protein,Urine Negative (Negative); Specific Gravity, Urine 1.015 (1.005-1.030)
[2024-10-08 15:30] VITALS: BP 131/85; PULSE 75; RESP 18; TEMP 37; O2SAT 97
[2024-10-08 15:41] LABS: WBC,Urine Occasional #/hpf (0-3)
[2024-10-08 15:42] LABS: Bacteria,Urine Trace /lpf; Squamous Epithelial Cell,Urine Occasional #/hpf (0-5)
[2024-10-08 16:21] LABS: Procalcitonin 0.054 ng/mL (0.0-2.0)
== END 2024-10-08 15:32 | disposition home or self-care (01) ==
PROVIDERS: Physician Assistant; Emergency Provider Emergency Medicine
DX: S22.31XA Fracture of one rib, right side, initial encounter for closed fracture (principal); R07.89 Other chest pain; X58.XXXA Exposure to other specified factors, initial encounter
CPT/HCPCS: 71250; 80053; 81001; 84145; 85025; 86140; 99284